=== PATIENT | male | born 1960 | race African-American/Black ===

== ENCOUNTER 2017-10-16 22:33 | Emergency (ER) | payer MEDICARE ==
[2017-10-16] MEDS ORDERED: Sulfameth/Trimethoprim DS 800-160mg TAB ONE (23:05)
== END 2017-10-16 23:20 | disposition home or self-care (01) ==
LOC: NAV ERS 22:33
DX: L01.02 Bockhart's impetigo (principal); E11.65 Type 2 diabetes mellitus with hyperglycemia; E78.5 Hyperlipidemia, unspecified; I10 Essential (primary) hypertension
CPT/HCPCS: 36416; 99283

== ENCOUNTER 2018-01-07 23:59 | Emergency (ER) | payer MEDICARE | END 2018-01-08 00:40 | disposition home or self-care (01) | LOC: NAV ERS 23:59 | DX: B37.42 Candidal balanitis (principal); E11.9 Type 2 diabetes mellitus without complications; E78.5 Hyperlipidemia, unspecified; I10 Essential (primary) hypertension; Z79.84 Long term (current) use of oral hypoglycemic drugs; Z79.899 Other long term (current) drug therapy | CPT/HCPCS: 36416; 99283 ==

== ENCOUNTER 2018-08-20 21:40 | Emergency (ER) | payer MEDICARE ==
[2018-08-20] MEDS ORDERED: traMADol HCl 50 MG TAB ONE (21:55)
[2018-08-20] MEDS ORDERED: Penicillin V Potassium 250 MG TAB ONE (21:55)
== END 2018-08-20 22:00 | disposition home or self-care (01) ==
LOC: NAV ERS 21:40
DX: K04.7 Periapical abscess without sinus (principal); Z79.84 Long term (current) use of oral hypoglycemic drugs; Z79.899 Other long term (current) drug therapy; Z79.82 Long term (current) use of aspirin
CPT/HCPCS: 99282